=== PATIENT | female | born 1960 | race American Indian/Alaskan Native ===

== ENCOUNTER 2017-05-17 13:36 | Outpatient (CLI) | payer OTHER ==
--- NOTE | 2017-05-17 15:55 | XRay Report ---
Left hand: Pain. There is an old avulsion fracture involving the distal second metacarpal on the ulnar side. A small separate ossicle remains. 2 adjacent cysts identified in the navicular bone. The bony structures and joints otherwise appear generally unremarkable. There is no obvious soft tissue swelling. Impression: No acute findings noted.
== END 2017-05-17 13:37 | disposition home or self-care (01) ==
LOC: SPVIMAG 13:36
PROVIDERS: ATTEND Orthopaedic Surgery Sports Medicine
DX: M79.645 Pain in left finger(s) (principal); M79.642 Pain in left hand; M89.8X4 Other specified disorders of bone, hand; S62.391D Other fracture of second metacarpal bone, left hand, subsequent encounter for fracture with routine healing; X58.XXXD Exposure to other specified factors, subsequent encounter